=== PATIENT | female | born 1940 | race Caucasian/White ===

== ENCOUNTER 2017-11-08 13:14 | Inpatient (IN) | payer MEDICARE, MEDICAID ==
[2017-11-08] MEDS ORDERED: Sodium Chloride 0.9% 10 ML Syringe FLUSH PRN (13:23)
[2017-11-08] MEDS ORDERED: Lactated Ringers 1,000 ML IV ONE (13:29)
--- NOTE | 2017-11-08 13:34 | EDM.PDOC ---
ED HPI GENERAL MEDICAL PROBLEM - General Chief Complaint: General Stated Complaint: Hypoxia; Lethargy Time Seen by Provider: 11/08/17 13:22 Source of Information: Reports: EMS, EMS Notes Reviewed, Residential Records, RN, RN Notes Reviewed History Limitations: Reports: Altered Mental Status - History of Present Illness INITIAL COMMENTS - FREE TEXT/NARRATIVE: Patient is brought to the ED at [facility] via EMS from the halfway for elevated blood sugar, lethargy, and hypoxia. Patient is a poor historian as she is obtunded and has advanced dementia. History obtained from CT records and EMS crew. Onset: Today - Related Data Allergies Allergy/AdvReac Type Severity Reaction Status Date / Time Penicillins Allergy Rash Verified 11/08/17 14:55 azithromycin [From Zithromax] AdvReac Other Verified 11/08/17 14:55 ciprofloxacin HCl AdvReac Other Verified 11/08/17 14:55 [From Cipro] Home Meds: Home Meds Bisacodyl [Dulcolax] 10 mg RC DAILY PRN 06/03/14 [History] Bisacodyl [Laxative] 10 mg PO DAILY PRN 06/03/14 [History] Polyethylene Glycol 3350 [MiraLAX] 17 gm PO DAILY 06/03/14 [History] Sennosides/Docusate Sodium [Senna-S] 2 tab PO BID 06/03/14 [History] Sertraline [Zoloft] 100 mg PO DAILY 06/03/14 [History] ALPRAZolam [Xanax] 1 mg PO QID 11/08/17 [History] Ketoconazole [Ketoconazole 2%] 1 applic TOP DAILY PRN 11/08/17 [History] Morphine Sulfate 2.5 mg PO Q1H PRN 11/08/17 [History] Ondansetron HCl [Zofran] 4 mg PO Q6H PRN 11/08/17 [History] QUEtiapine Fumarate [Quetiapine Fumarate ER] 400 mg PO DAILY 11/08/17 [History] QUEtiapine [SEROquel] 100 mg PO BID 11/08/17 [History] Ranitidine HCl [Zantac] 150 mg PO BID 11/08/17 [History] Past Medical History Cardiovascular History: Reports: High Cholesterol, Hypertension Gastrointestinal History: Reports: Chronic Constipation, GERD Musculoskeletal History: Reports: Osteoarthritis Neurological History: Reports: Alzheimers Disease, Other (See Below) Other Neuro History: psychosis Psychiatric History: Reports: Aggressive/Hostile Behaviors, Alzheimers Disease , Anxiety, Dementia, Depression, Psychosis, Other (See Below) Other Psychiatric History: dependent Endocrine/Metabolic History: Reports: Diabetes, Type II Social & Family History - Living Situation & Occupation Living situation: Reports: Extended Care Facility ED ROS GENERAL - Review of Systems Review Of Systems: Unable To Obtain (due to patient conditions; See HPI) ED EXAM, GENERAL - Physical Exam Exam: See Below Exam Limited By: Altered Mental Status General Appearance: Obtunded Eye Exam: Bilateral Eye: Normal Inspection, PERRL Head: Atraumatic, Normocephalic Respiratory/Chest: No Respiratory Distress, Lungs Clear, Decreased Breath Sounds Cardiovascular: Normal Peripheral Pulses, Regular Rate, Rhythm Peripheral Pulses: 2+: Radial (L), Radial (R) GI/Abdominal: Normal Bowel Sounds, Soft, Non-Tender Neurological: Disoriented, Unresponsive Skin Exam: Warm, Dry, Intact EKG INTERPRETATION EKG Date: 11/08/17 Time: 13:51 Rhythm: NSR Rate (Beats/Min): 73 [place]: Normal P-Wave: Present QRS: Normal ST-T: Normal QT: Normal UT/PQ Interval: 0.12 Comparison: No Change EKG Interpretation Comments: 1. Sinus Rhythm 2. Moderate voltage criteria for LVH, consider normal variant 3. Nonspecific T-wave abnormality Course - Vital Signs Last Recorded V/S: Last Vital Signs Temp 37.4 C 11/08/17 13:20 Pulse 69 11/08/17 14:57 Resp 17 11/08/17 14:57 BP 134/67 11/08/17 14:57 Pulse Ox 96 11/08/17 14:57 - Orders/Labs/Meds Orders: Active Orders 24 hr Category Date Time Status Admission Status [Patient Status] [ADT] Routine ADT 11/08/17 15:36 Ordered EKG 12 Lead [EKG Documentation Completion] [RC] STAT Care 11/08/17 13:46 Active Chest 1V Frontal [CR] Stat Exams 11/08/17 13:28 Taken Head wo Cont [CT] Stat Exams 11/08/17 15:36 Ordered CULTURE BLOOD [BC] Stat Lab 11/08/17 13:44 Received CULTURE BLOOD [BC] Stat Lab 11/08/17 13:50 Received UA W/MICROSCOPIC [URIN] Stat Lab 11/08/17 13:29 Ordered Sodium Chloride 0.9% [Saline Flush] Med 11/08/17 13:23 Active 10 ml FLUSH ASDIRECTED PRN Vancomycin 1,500 mg Med 11/08/17 15:00 Active Sodium Chloride 0.9% [Normal Saline] 250 ml IV BID@0000,1200 Blood Culture x2 Reflex Set [OM.PC] Stat Oth 11/08/17 13:22 Ordered Peripheral IV Insertion Adult [OM.PC] Routine Oth 11/08/17 13:23 Ordered Medication Orders Vancomycin HCl 1,500 mg/ (Sodium Chloride) 250 mls @ 166.667 mls/hr IV BID@0000 ,1200 DAVID Last Admin: 11/08/17 15:18 Dose: 166.667 mls/hr Sodium Chloride (Saline Flush) 10 ml FLUSH ASDIRECTED PRN PRN Reason: Keep Vein Open Labs: Laboratory Tests 11/08/17 11/08/17 11/08/17 Range/Units 13:29 13:44 13:44 WBC 12.2 H (4.0-10.0) x10^3/uL RBC 4.22 (4.00-5.50) x10^6/uL Hgb 12.7 D (12.0-16.0) g/dL Hct 41.3 (33.0-47.0) % MCV 97.9 H D (78.0-93.0) fL MCH 30.1 (26.0-32.0) pg MCHC 30.8 L (32.0-36.0) g/dL RDW Coeff of Patricia 14.2 (10.0-15.0) % Plt Count 183 (130-400) x10^3/uL Add Manual Diff Yes Neutrophils % (Manual) 65 (50-80) % Band Neutrophils % 2 (0-6) % Lymphocytes % (Manual) 29 (25-50) % Monocytes % (Manual) 4 (2-11) % Platelet Estimate Adequate POC ABG pH POC ABG pCO2 POC ABG pO2 POC ABG HCO3 POC ABG Total CO2 POC ABG O2 Sat POC ABG Base Excess POC VBG pH POC VBG pCO2 POC VBG pO2 POC VBG HCO3 POC VBG Total CO2 POC VBG Base Excess O2 Delivery Device POC O2 Flow Rate POC FiO2 Sodium 156 H D (136-145) mmol/L Potassium 4.1 (3.5-5.1) mmol/L Chloride 117 H D (98-107) mmol/L Carbon Dioxide 31 (21-32) mmol/L Anion Gap 12.1 (10-20) mmol/L BUN 26 H (7-18) mg/dL Creatinine 0.9 (0.55-1.02) mg/dL Est Cr Clr Drug Dosing TNP Estimated GFR (MDRD) > 60 Glucose 236 H (74-106) mg/dL Lactic Acid (0.4-2.0) mmol/L Calcium 8.8 (8.5-10.1) mg/dL Corrected Calcium 9.92 (8.5-10.1) mg/dL Total Bilirubin 0.4 (0.2-1.0) mg/dL AST 19 (15-37) U/L ALT 19 (14-59) U/L Alkaline Phosphatase 87 (46-116) U/L Creatine Kinase (26-192) U/L Troponin I (<=0.056) ng/mL C-Reactive Protein 3.4 H (<=0.9) mg/dL Total Protein 7.5 (6.4-8.2) g/dL Albumin 2.6 L (3.4-5.0) g/dL Globulin 4.9 Albumin/Globulin Ratio 0.53 Urine Color Yellow (YELLOW) Urine Appearance Turbid H (CLEAR) Urine pH 6.5 (5.0-8.0) Ur Specific [place] 1.020 Urine Protein 30 H (NEGATIVE) mg/dL Urine Glucose (UA) 500 H (NEGATIVE) mg/dL Urine Ketones Trace H (NEGATIVE) mg/dL Urine Occult Blood Trace-lysed H (NEGATIVE) Urine Nitrite Positive H (NEGATIVE) Urine Bilirubin Negative (NEGATIVE) Urine Urobilinogen 0.2 (0.2) EU/dL Ur Leukocyte Esterase Negative (NEGATIVE) Urine RBC 5-10 H (NOT SEEN) /HPF Urine WBC 5-10 H (NOT SEEN) /HPF Ur Squamous Epith Cells Few H (NEGATIVE) /HPF Urine Bacteria Many H (NEGATIVE) /HPF Urine Mucus Rare H (NEGATIVE) /LPF 11/08/17 11/08/17 11/08/17 Range/Units 13:44 13:44 14:12 WBC (4.0-10.0) x10^3/uL RBC (4.00-5.50) x10^6/uL Hgb (12.0-16.0) g/dL Hct (33.0-47.0) % MCV (78.0-93.0) fL MCH (26.0-32.0) pg MCHC (32.0-36.0) g/dL RDW Coeff of Patricia (10.0-15.0) % Plt Count (130-400) x10^3/uL Add Manual Diff Neutrophils % (Manual) (50-80) % Band Neutrophils % (0-6) % Lymphocytes % (Manual) (25-50) % Monocytes % (Manual) (2-11) % Platelet Estimate POC ABG pH Cancelled POC ABG pCO2 Cancelled POC ABG pO2 Cancelled POC ABG HCO3 Cancelled POC ABG Total CO2 Cancelled POC ABG O2 Sat Cancelled POC ABG Base Excess Cancelled POC VBG pH Cancelled POC VBG pCO2 Cancelled POC VBG pO2 Cancelled POC VBG HCO3 Cancelled POC VBG Total CO2 Cancelled POC VBG Base Excess Cancelled O2 Delivery Device Cancelled POC O2 Flow Rate Cancelled POC FiO2 Cancelled Sodium (136-145) mmol/L Potassium (3.5-5.1) mmol/L Chloride (98-107) mmol/L Carbon Dioxide (21-32) mmol/L Anion Gap (10-20) mmol/L BUN (7-18) mg/dL Creatinine (0.55-1.02) mg/dL Est Cr Clr Drug Dosing Estimated GFR (MDRD) Glucose (74-106) mg/dL Lactic Acid 2.6 H* (0.4-2.0) mmol/L Calcium (8.5-10.1) mg/dL Corrected Calcium (8.5-10.1) mg/dL Total Bilirubin (0.2-1.0) mg/dL AST (15-37) U/L ALT (14-59) U/L Alkaline Phosphatase (46-116) U/L Creatine Kinase 72 (26-192) U/L Troponin I 0.019 (<=0.056) ng/mL C-Reactive Protein (<=0.9) mg/dL Total Protein (6.4-8.2) g/dL Albumin (3.4-5.0) g/dL Globulin Albumin/Globulin Ratio Urine Color (YELLOW) Urine Appearance (CLEAR) Urine pH (5.0-8.0) Ur Specific [place] Urine Protein (NEGATIVE) mg/dL Urine Glucose (UA) (NEGATIVE) mg/dL Urine Ketones (NEGATIVE) mg/dL Urine Occult Blood (NEGATIVE) Urine Nitrite (NEGATIVE) Urine Bilirubin (NEGATIVE) Urine Urobilinogen (0.2) EU/dL Ur Leukocyte Esterase (NEGATIVE) Urine RBC (NOT SEEN) /HPF Urine WBC (NOT SEEN) /HPF Ur Squamous Epith Cells (NEGATIVE) /HPF Urine Bacteria (NEGATIVE) /HPF Urine Mucus (NEGATIVE) /LPF 11/08/17 Range/Units 14:32 WBC (4.0-10.0) x10^3/uL RBC (4.00-5.50) x10^6/uL Hgb (12.0-16.0) g/dL Hct (33.0-47.0) % MCV (78.0-93.0) fL MCH (26.0-32.0) pg MCHC (32.0-36.0) g/dL RDW Coeff of Patricia (10.0-15.0) % Plt Count (130-400) x10^3/uL Add Manual Diff Neutrophils % (Manual) (50-80) % Band Neutrophils % (0-6) % Lymphocytes % (Manual) (25-50) % Monocytes % (Manual) (2-11) % Platelet Estimate POC ABG pH 7.442 POC ABG pCO2 44 POC ABG pO2 79 L POC ABG HCO3 30 H POC ABG Total CO2 31 H POC ABG O2 Sat 96 POC ABG Base Excess 6 H POC VBG pH POC VBG pCO2 POC VBG pO2 POC VBG HCO3 POC VBG Total CO2 POC VBG Base Excess O2 Delivery Device POC O2 Flow Rate POC FiO2 0.28 Sodium (136-145) mmol/L Potassium (3.5-5.1) mmol/L Chloride (98-107) mmol/L Carbon Dioxide (21-32) mmol/L Anion Gap (10-20) mmol/L BUN (7-18) mg/dL Creatinine (0.55-1.02) mg/dL Est Cr Clr Drug Dosing Estimated GFR (MDRD) Glucose (74-106) mg/dL Lactic Acid (0.4-2.0) mmol/L Calcium (8.5-10.1) mg/dL Corrected Calcium (8.5-10.1) mg/dL Total Bilirubin (0.2-1.0) mg/dL AST (15-37) U/L ALT (14-59) U/L Alkaline Phosphatase (46-116) U/L Creatine Kinase (26-192) U/L Troponin I (<=0.056) ng/mL C-Reactive Protein (<=0.9) mg/dL Total Protein (6.4-8.2) g/dL Albumin (3.4-5.0) g/dL Globulin Albumin/Globulin Ratio Urine Color (YELLOW) Urine Appearance (CLEAR) Urine pH (5.0-8.0) Ur Specific [place] Urine Protein (NEGATIVE) mg/dL Urine Glucose (UA) (NEGATIVE) mg/dL Urine Ketones (NEGATIVE) mg/dL Urine Occult Blood (NEGATIVE) Urine Nitrite (NEGATIVE) Urine Bilirubin (NEGATIVE) Urine Urobilinogen (0.2) EU/dL Ur Leukocyte Esterase (NEGATIVE) Urine RBC (NOT SEEN) /HPF Urine WBC (NOT SEEN) /HPF Ur Squamous Epith Cells (NEGATIVE) /HPF Urine Bacteria (NEGATIVE) /HPF Urine Mucus (NEGATIVE) /LPF Meds: Medications Generic Name Dose Route Start Last Admin Trade Name Freq PRN Reason Stop Dose Admin Vancomycin HCl 1,500 mg/ 250 mls @ 166.667 mls/hr 11/08/17 15:00 11/08/17 15: 18 Sodium Chloride IV 166.667 mls/hr BID@0000,1200 DAVID Administration Sodium Chloride 10 ml 11/08/17 13:23 Saline Flush FLUSH ASDIRECTED PRN Keep Vein Open Discontinued Medications Generic Name Dose Route Start Last Admin Trade Name Freq PRN Reason Stop Dose Admin Lactated Ringer's 1,000 mls @ 999 mls/hr 11/08/17 13:29 Ringers, Lactated IV 11/08/17 14:29 ONETIME ONE Sodium Chloride 1,000 mls @ 999 mls/hr 11/08/17 13:45 11/08/17 14:00 Normal Saline IV 11/08/17 14:45 999 mls/hr ONETIME ONE Administration Vancomycin HCl 1 dose 11/08/17 14:51 11/08/17 15:26 Pharmacy To Dose - Vancomycin .XX 11/08/17 14:52 Not Given ONETIME ONE - Radiology Interpretation Free Text/Narrative:: CXR: Hypoventilatory change with bibasilar atelectasis and possible left base infiltrates See scanned report in EMR Departure - Departure Time of Disposition: 15:41 Disposition: Admitted As Inpatient 68 Condition: Fair Clinical Impression: Pneumonia Qualifiers: Pneumonia type: due to unspecified organism Laterality: left Lung location: lower lobe of lung Qualified Code(s): J18.1 - Lobar pneumonia, unspecified organism Sepsis Qualifiers: Sepsis type: sepsis due to unspecified organism Qualified Code(s): A41.9 - Sepsis, unspecified organism Altered mental status Qualifiers: Altered mental status type: unspecified Qualified Code(s): R41.82 - Altered mental status, unspecified - Discharge Information ED Communication - ED Communication Date/Time Date: 11/08/17 Time Called: 15:03 - Discussed Case With (1) Discussed Case With (1): Admitting Provider Person/s Notified (1): Caleb Rdz - Conversation Summary Admitting Provider Agreed to Patient's Admission: Yes Patient's POA/Guardian Aware of Amendments to Care Plan: Yes - Problem List Review Problem List Initiated/Reviewed/Updated: Yes - My Orders Last 24 Hours: My Active Orders 11/08/17 13:22 Blood Culture x2 Reflex Set [OM.PC] Stat 11/08/17 13:23 Sodium Chloride 0.9% [Saline Flush] 10 ml FLUSH ASDIRECTED PRN Peripheral IV Insertion Adult [OM.PC] Routine 11/08/17 13:28 Chest 1V Frontal [CR] Stat 11/08/17 13:29 UA W/MICROSCOPIC [URIN] Stat 11/08/17 13:44 CULTURE BLOOD [BC] Stat 11/08/17 13:46 EKG 12 Lead [EKG Documentation Completion] [RC] STAT 11/08/17 13:50 CULTURE BLOOD [BC] Stat 11/08/17 15:00 Vancomycin 1,500 mg Sodium Chloride 0.9% [Normal Saline] 250 ml IV BID@0000, 1200 11/08/17 15:36 Admission Status [Patient Status] [ADT] Routine Head wo Cont [CT] Stat - Assessment/Plan Last 24 Hours: My Active Orders 11/08/17 13:22 Blood Culture x2 Reflex Set [OM.PC] Stat 11/08/17 13:23 Sodium Chloride 0.9% [Saline Flush] 10 ml FLUSH ASDIRECTED PRN Peripheral IV Insertion Adult [OM.PC] Routine 11/08/17 13:28 Chest 1V Frontal [CR] Stat 11/08/17 13:29 UA W/MICROSCOPIC [URIN] Stat 11/08/17 13:44 CULTURE BLOOD [BC] Stat 11/08/17 13:46 EKG 12 Lead [EKG Documentation Completion] [RC] STAT 11/08/17 13:50 CULTURE BLOOD [BC] Stat 11/08/17 15:00 Vancomycin 1,500 mg Sodium Chloride 0.9% [Normal Saline] 250 ml IV BID@0000, 1200 11/08/17 15:36 Admission Status [Patient Status] [ADT] Routine Head wo Cont [CT] Stat Assessment:: LLL infiltrate Hypoxia Altered Mental Status Plan: Sepsis criteria met. Patient will be given Vanco as initial antibiotic. Patient will be admitted to acute status. Case discussed with Dr. Kevin Avendaño.
[2017-11-08] MEDS ORDERED: Sodium Chloride 0.9% 1,000 ML IV ONE (13:45)
[2017-11-08 14:21] LABS: CHLORIDE,CL 117 mmol/L (98-107); SODIUM,NA 156 mmol/L (136-145)
[2017-11-08] MEDS ORDERED: Acetaminophen 325 MG Tab PO PRN (16:55)
[2017-11-08] MEDS ORDERED: Bisacodyl 10 MG Supp RECTAL PRN (16:55)
[2017-11-08] MEDS ORDERED: Glycopyrrolate 1 MG Tab PO PRN (16:55)
[2017-11-08] MEDS ORDERED: Levofloxacin/Dextrose 5%-Water 500 MG in Premix Bag 1 BAG IV SCH (17:00)
[2017-11-08] MEDS ORDERED: Ondansetron 4 MG/2 ML SDV IV PRN (17:13)
--- NOTE | 2017-11-08 17:13 | PCM.HP ---
H&P History of Present Illness - General Date of Service: 11/08/17 Admit Problem/Dx: Admission Diagnosis/Problem Admission Diagnosis/Problem Pneumonia - History of Present Illness Initial Comments - Free Text/Narative: History of present illness: Patient was [facility] a [facility] for couple day history of lethargy, less responsive, low-grade temps, hypoxia, was around 87% on room air there. Symptoms going on past couple of days. Patient has a history of advanced dementia she had been on hospice because of this up until a week ago. From report I get sounds if she was maybe slightly improving with her oral intake and cares she was taken off hospice a week ago. Patient cannot provide any history or review of systems. On arrival to ER she was found to be rather obtunded she was arousable to painful stimulation. CT head was done to rule out any acute events and was negative. They gave her some fluid challenge and she seems a bit more responsive now, nursing reports she's waking up easily. PMH: advancing dementia w/ previous hospice Type 2 diabetes mellitus, hypertension, prolonged QT on ECG, depression, anxiety , delirium. Medications: Levemir, Xanax, B-12, metformin, Seroquel, cold, Zyprexa, aspirin, Zocor. Allergies: Penicillin, Ativan, Cipro, azithromycin. Family history is noncontributory. Social history shows smoking history although not likely recently at the jail. Review of Systems is otherwise unobtainable. Physical exam: Temperature 36.3 Celsius blood pressure 134/67 pulse 69 oxygen saturation 96% on 2 L. He is resting comfortably, she opens her eyes and arouses easily to my talking to her. She is slightly pale appearance. She's otherwise smiling and happy. Pupils are equal round reactive to light. No cranial nerve deficit as testable. Heart and lungs clear to auscultation. Abdomen is soft and nontender seeming. Extremities warm well perfused without peripheral edema. A/P: Decreased responsiveness. Nonspecific in patient with advanced dementia. She does appear to have a total body water deficit, she is hypernatremic and her BUN is elevated beyond baseline. We will switch normal saline to LR and gently rehydrate her. Recheck electrolytes in a.m. She seemed to wake up quickly with fluid challenge in ER. Her hypoxia could be secondary to decreased responsiveness. Blood gas fairly normal. Not requiring much for oxygen supplementation here. X-ray has not overly impressive, may be faint left-sided infiltrate at most. Will start empiric vancomycin and cefepime for possible healthcare associated pneumonia. She will continue her usual sedatives for her dementia related behaviors. She is a DNR patient. She had been on hospice up until a week ago because of her advanced dementia. - Related Data Allergies/Adverse Reactions: Allergies Allergy/AdvReac Type Severity Reaction Status Date / Time Penicillins Allergy Rash Verified 11/08/17 14:55 azithromycin [From Zithromax] AdvReac Other Verified 11/08/17 14:55 ciprofloxacin HCl AdvReac Other Verified 11/08/17 14:55 [From Cipro] Home Medications: Home Meds Bisacodyl [Dulcolax] 10 mg RC DAILY PRN 06/03/14 [History] Bisacodyl [Laxative] 5 mg PO DAILY PRN 06/03/14 [History] Polyethylene Glycol 3350 [MiraLAX] 17 gm PO DAILY 06/03/14 [History] Sennosides/Docusate Sodium [Senna-S] 2 tab PO BID 06/03/14 [History] Sertraline [Zoloft] 100 mg PO DAILY 06/03/14 [History] ALPRAZolam [Xanax] 1 mg PO QID 11/08/17 [History] Acetaminophen 650 mg PO Q6H PRN 11/08/17 [History] Ammonium Lactate [Amlactin 12% Lotion] 1 dose TP DAILY 11/08/17 [History] [place]/Min Oil/Yady/Wool Alcoh [Eucerin Creme] 1 dose TOP BID 11/08/17 [History] Divalproex Sodium [Depakote] 3 tab PO BID 11/08/17 [History] Glycopyrrolate [Robinul] 1 mg PO Q8H PRN 11/08/17 [History] Insulin Detemir [Levemir] 22 unit SQ DAILY 11/08/17 [History] Ketoconazole [Ketoconazole 2%] 1 applic TOP DAILY PRN 11/08/17 [History] Menthol/Zinc Oxide [Calmoseptine] 3.5 gm TOP BID 11/08/17 [History] Morphine Sulfate 2.5 mg PO Q1H PRN 11/08/17 [History] Ondansetron HCl [Zofran] 4 mg PO Q6H PRN 11/08/17 [History] QUEtiapine Fumarate [Quetiapine Fumarate ER] 400 mg PO DAILY 11/08/17 [History] QUEtiapine [SEROquel] 100 mg PO BID 11/08/17 [History] Ranitidine HCl [Zantac] 150 mg PO BID 11/08/17 [History] Past Medical History HEENT History: Reports: Sinusitis Cardiovascular History: Reports: High Cholesterol, Hypertension, Other (See Below) Other Cardiovascular History: Prolonged Q-T interval. Gastrointestinal History: Reports: Chronic Constipation, GERD Other Gastrointestinal History: diaphragmatic hernia Genitourinary History: Reports: UTI, Recurrent Musculoskeletal History: Reports: Osteoarthritis Neurological History: Reports: Alzheimers Disease, Vertigo, Other (See Below) Other Neuro History: psychosis Psychiatric History: Reports: Aggressive/Hostile Behaviors, Alzheimers Disease , Anxiety, Depression, Psychosis, Other (See Below) Other Psychiatric History: dependent Endocrine/Metabolic History: Reports: Diabetes, Type II Hematologic History: Reports: B12 Deficiency Social & Family History - Family History Family Medical History: Unobtainable - Tobacco Use Smoking Status *Q: Current Status Unknown Second Hand Smoke Exposure: No - Caffeine Use Caffeine Use: Reports: Coffee - Recreational Drug Use Recreational Drug Use: No - Living Situation & Occupation Living situation: Reports: Extended Care Facility H&P Review of Systems - Review of Systems: Review Of Systems: See Below Exam - Exam Exam: See Below - Vital Signs Vital Signs: Last Vital Signs Temp 36.3 C 11/08/17 15:47 Pulse 68 11/08/17 15:47 Resp 20 11/08/17 15:47 BP 162/98 H 11/08/17 15:47 Pulse Ox 95 11/08/17 15:47 Weight: 83.506 kg - Patient Data Lab Results Last 24 hrs: Laboratory Results - last 24 hr 11/08/17 11/08/17 11/08/17 Range/Units 13:29 13:44 13:44 WBC 12.2 H (4.0-10.0) x10^3/uL RBC 4.22 (4.00-5.50) x10^6/uL Hgb 12.7 D (12.0-16.0) g/dL Hct 41.3 (33.0-47.0) % MCV 97.9 H D (78.0-93.0) fL MCH 30.1 (26.0-32.0) pg MCHC 30.8 L (32.0-36.0) g/dL RDW Coeff of Patricia 14.2 (10.0-15.0) % Plt Count 183 (130-400) x10^3/uL Add Manual Diff Yes Neutrophils % (Manual) 65 (50-80) % Band Neutrophils % 2 (0-6) % Lymphocytes % (Manual) 29 (25-50) % Monocytes % (Manual) 4 (2-11) % Platelet Estimate Adequate POC ABG pH POC ABG pCO2 POC ABG pO2 POC ABG HCO3 POC ABG Total CO2 POC ABG O2 Sat POC ABG Base Excess POC VBG pH POC VBG pCO2 POC VBG pO2 POC VBG HCO3 POC VBG Total CO2 POC VBG Base Excess O2 Delivery Device POC O2 Flow Rate POC FiO2 Sodium 156 H D (136-145) mmol/L Potassium 4.1 (3.5-5.1) mmol/L Chloride 117 H D (98-107) mmol/L Carbon Dioxide 31 (21-32) mmol/L Anion Gap 12.1 (10-20) mmol/L BUN 26 H (7-18) mg/dL Creatinine 0.9 (0.55-1.02) mg/dL Est Cr Clr Drug Dosing TNP Estimated GFR (MDRD) > 60 Glucose 236 H (74-106) mg/dL Lactic Acid (0.4-2.0) mmol/L Calcium 8.8 (8.5-10.1) mg/dL Corrected Calcium 9.92 (8.5-10.1) mg/dL Total Bilirubin 0.4 (0.2-1.0) mg/dL AST 19 (15-37) U/L ALT 19 (14-59) U/L Alkaline Phosphatase 87 (46-116) U/L Creatine Kinase (26-192) U/L Troponin I (<=0.056) ng/mL C-Reactive Protein 3.4 H (<=0.9) mg/dL Total Protein 7.5 (6.4-8.2) g/dL Albumin 2.6 L (3.4-5.0) g/dL Globulin 4.9 Albumin/Globulin Ratio 0.53 Urine Color Yellow (YELLOW) Urine Appearance Turbid H (CLEAR) Urine pH 6.5 (5.0-8.0) Ur Specific [place] 1.020 Urine Protein 30 H (NEGATIVE) mg/dL Urine Glucose (UA) 500 H (NEGATIVE) mg/dL Urine Ketones Trace H (NEGATIVE) mg/dL Urine Occult Blood Trace-lysed H (NEGATIVE) Urine Nitrite Positive H (NEGATIVE) Urine Bilirubin Negative (NEGATIVE) Urine Urobilinogen 0.2 (0.2) EU/dL Ur Leukocyte Esterase Negative (NEGATIVE) Urine RBC 5-10 H (NOT SEEN) /HPF Urine WBC 5-10 H (NOT SEEN) /HPF Ur Squamous Epith Cells Few H (NEGATIVE) /HPF Urine Bacteria Many H (NEGATIVE) /HPF Urine Mucus Rare H (NEGATIVE) /LPF 11/08/17 11/08/17 11/08/17 Range/Units 13:44 13:44 14:12 WBC (4.0-10.0) x10^3/uL RBC (4.00-5.50) x10^6/uL Hgb (12.0-16.0) g/dL Hct (33.0-47.0) % MCV (78.0-93.0) fL MCH (26.0-32.0) pg MCHC (32.0-36.0) g/dL RDW Coeff of Patricia (10.0-15.0) % Plt Count (130-400) x10^3/uL Add Manual Diff Neutrophils % (Manual) (50-80) % Band Neutrophils % (0-6) % Lymphocytes % (Manual) (25-50) % Monocytes % (Manual) (2-11) % Platelet Estimate POC ABG pH Cancelled POC ABG pCO2 Cancelled POC ABG pO2 Cancelled POC ABG HCO3 Cancelled POC ABG Total CO2 Cancelled POC ABG O2 Sat Cancelled POC ABG Base Excess Cancelled POC VBG pH Cancelled POC VBG pCO2 Cancelled POC VBG pO2 Cancelled POC VBG HCO3 Cancelled POC VBG Total CO2 Cancelled POC VBG Base Excess Cancelled O2 Delivery Device Cancelled POC O2 Flow Rate Cancelled POC FiO2 Cancelled Sodium (136-145) mmol/L Potassium (3.5-5.1) mmol/L Chloride (98-107) mmol/L Carbon Dioxide (21-32) mmol/L Anion Gap (10-20) mmol/L BUN (7-18) mg/dL Creatinine (0.55-1.02) mg/dL Est Cr Clr Drug Dosing Estimated GFR (MDRD) Glucose (74-106) mg/dL Lactic Acid 2.6 H* (0.4-2.0) mmol/L Calcium (8.5-10.1) mg/dL Corrected Calcium (8.5-10.1) mg/dL Total Bilirubin (0.2-1.0) mg/dL AST (15-37) U/L ALT (14-59) U/L Alkaline Phosphatase (46-116) U/L Creatine Kinase 72 (26-192) U/L Troponin I 0.019 (<=0.056) ng/mL C-Reactive Protein (<=0.9) mg/dL Total Protein (6.4-8.2) g/dL Albumin (3.4-5.0) g/dL Globulin Albumin/Globulin Ratio Urine Color (YELLOW) Urine Appearance (CLEAR) Urine pH (5.0-8.0) Ur Specific [place] Urine Protein (NEGATIVE) mg/dL Urine Glucose (UA) (NEGATIVE) mg/dL Urine Ketones (NEGATIVE) mg/dL Urine Occult Blood (NEGATIVE) Urine Nitrite (NEGATIVE) Urine Bilirubin (NEGATIVE) Urine Urobilinogen (0.2) EU/dL Ur Leukocyte Esterase (NEGATIVE) Urine RBC (NOT SEEN) /HPF Urine WBC (NOT SEEN) /HPF Ur Squamous Epith Cells (NEGATIVE) /HPF Urine Bacteria (NEGATIVE) /HPF Urine Mucus (NEGATIVE) /LPF 11/08/17 Range/Units 14:32 WBC (4.0-10.0) x10^3/uL RBC (4.00-5.50) x10^6/uL Hgb (12.0-16.0) g/dL Hct (33.0-47.0) % MCV (78.0-93.0) fL MCH (26.0-32.0) pg MCHC (32.0-36.0) g/dL RDW Coeff of Patricia (10.0-15.0) % Plt Count (130-400) x10^3/uL Add Manual Diff Neutrophils % (Manual) (50-80) % Band Neutrophils % (0-6) % Lymphocytes % (Manual) (25-50) % Monocytes % (Manual) (2-11) % Platelet Estimate POC ABG pH 7.442 POC ABG pCO2 44 POC ABG pO2 79 L POC ABG HCO3 30 H POC ABG Total CO2 31 H POC ABG O2 Sat 96 POC ABG Base Excess 6 H POC VBG pH POC VBG pCO2 POC VBG pO2 POC VBG HCO3 POC VBG Total CO2 POC VBG Base Excess O2 Delivery Device POC O2 Flow Rate POC FiO2 0.28 Sodium (136-145) mmol/L Potassium (3.5-5.1) mmol/L Chloride (98-107) mmol/L Carbon Dioxide (21-32) mmol/L Anion Gap (10-20) mmol/L BUN (7-18) mg/dL Creatinine (0.55-1.02) mg/dL Est Cr Clr Drug Dosing Estimated GFR (MDRD) Glucose (74-106) mg/dL Lactic Acid (0.4-2.0) mmol/L Calcium (8.5-10.1) mg/dL Corrected Calcium (8.5-10.1) mg/dL Total Bilirubin (0.2-1.0) mg/dL AST (15-37) U/L ALT (14-59) U/L Alkaline Phosphatase (46-116) U/L Creatine Kinase (26-192) U/L Troponin I (<=0.056) ng/mL C-Reactive Protein (<=0.9) mg/dL Total Protein (6.4-8.2) g/dL Albumin (3.4-5.0) g/dL Globulin Albumin/Globulin Ratio Urine Color (YELLOW) Urine Appearance (CLEAR) Urine pH (5.0-8.0) Ur Specific [place] Urine Protein (NEGATIVE) mg/dL Urine Glucose (UA) (NEGATIVE) mg/dL Urine Ketones (NEGATIVE) mg/dL Urine Occult Blood (NEGATIVE) Urine Nitrite (NEGATIVE) Urine Bilirubin (NEGATIVE) Urine Urobilinogen (0.2) EU/dL Ur Leukocyte Esterase (NEGATIVE) Urine RBC (NOT SEEN) /HPF Urine WBC (NOT SEEN) /HPF Ur Squamous Epith Cells (NEGATIVE) /HPF Urine Bacteria (NEGATIVE) /HPF Urine Mucus (NEGATIVE) /LPF Result Diagrams: 11/08/17 13:44 11/08/17 13:44 Problem List Initiated/Reviewed/Updated: Yes Orders Last 24hrs: Active Orders 24 hr Category Date Time Status Admission Status [Patient Status] [ADT] Routine ADT 11/08/17 15:36 Active Blood Glucose Check, Bedside [RC] QIDACANDBED Care 11/08/17 16:56 Active Chest 1V Frontal [CR] Stat Exams 11/08/17 13:28 Taken Head wo Cont [CT] Stat Exams 11/08/17 15:36 Taken C-REACTIVE PROTEIN [CHEM] AM Lab 11/09/17 05:11 Ordered CBC WITH AUTO DIFF [HEME] AM Lab 11/09/17 05:11 Ordered COMPREHENSIVE METABOLIC PN,CMP [CHEM] AM Lab 11/09/17 05:11 Ordered CULTURE BLOOD [BC] Stat Lab 11/08/17 13:44 Received CULTURE BLOOD [BC] Stat Lab 11/08/17 13:50 Received CULTURE MRSA SURVEY [RM] Routine Lab 11/08/17 16:18 Ordered LACTIC ACID [CHEM] AM Lab 11/09/17 05:11 Ordered UA W/MICROSCOPIC [URIN] Stat Lab 11/08/17 13:29 Ordered VANCOMYCIN TROUGH [CHEM] Routine Lab 11/10/17 11:30 Ordered ALPRAZolam [Xanax] Med 11/08/17 20:00 Ordered 1 mg PO QID Acetaminophen [Tylenol] Med 11/08/17 16:55 Ordered 650 mg PO Q6H PRN Bisacodyl [Dulcolax] Med 11/08/17 16:55 Ordered 10 mg RECTAL DAILY PRN Bisacodyl [Laxative] Med 11/08/17 16:55 Ordered 5 mg PO DAILY PRN Cefepime [Maxipime] Med 11/08/17 17:15 Ordered 2 gm IV Q8H Divalproex Sodium [Depakote] Med 11/08/17 20:00 Ordered 3 tab PO BID Docusate Sodium/Sennosides [Senna Plus] Med 11/08/17 20:00 Ordered 2 tab PO BID Glycopyrrolate [Robinul] Med 11/08/17 16:55 Ordered 1 mg PO Q8H PRN Insulin Detemir Med 11/09/17 08:00 Ordered 22 unit SQ DAILY Levofloxacin/Dextrose 5%-Water [Levaquin in D5W 500 MG/ Med 11/08/17 17:00 Ordered 100 ML] 500 mg Premix Bag 1 bag IV Q24H Morphine Sulfate [Morphine Sulfate] Med 11/08/17 16:55 Ordered 2.5 mg PO Q1H PRN Ondansetron HCl Med 11/08/17 16:55 Ordered 4 mg PO Q6H PRN Polyethylene Glycol 3350 [MiraLAX] Med 11/09/17 08:00 Ordered 17 gm PO DAILY QUEtiapine Fumarate [Quetiapine Fumarate ER] Med 11/09/17 08:00 Ordered 400 mg PO DAILY QUEtiapine [SEROquel] Med 11/08/17 20:00 Ordered 100 mg PO BID Ranitidine HCl [Zantac] Med 11/08/17 20:00 Ordered 150 mg PO BID Sertraline [Zoloft] Med 11/09/17 08:00 Ordered 100 mg PO DAILY Sodium Chloride 0.9% [Saline Flush] Med 11/08/17 13:23 Active 10 ml FLUSH ASDIRECTED PRN Vancomycin 1,500 mg Med 11/08/17 15:00 Active Sodium Chloride 0.9% [Normal Saline] 250 ml IV BID@0000,1200 Vancomycin Pharmacy to Dose [Pharmacy to Dose - Med 11/08/17 16:45 Pending Vancomycin] 1 dose .XX ONETIME ONE Blood Culture x2 Reflex Set [OM.PC] Stat Oth 11/08/17 13:22 Ordered Peripheral IV Insertion Adult [OM.PC] Routine Oth 11/08/17 13:23 Ordered Code Status [Resuscitation Status] Routine Resus Stat 11/08/17 16:15 Ordered Medication Orders Acetaminophen (Tylenol) 650 mg PO Q6H PRN PRN Reason: Pain Bisacodyl (Dulcolax) 10 mg RECTAL DAILY PRN PRN Reason: Constipation Cefepime HCl (Maxipime) 2 gm IV Q8H DAVID Glycopyrrolate (Robinul) 1 mg PO Q8H PRN PRN Reason: Other Vancomycin HCl 1,500 mg/ (Sodium Chloride) 250 mls @ 166.667 mls/hr IV BID@0000 ,1200 [facility] Last Admin: 11/08/17 15:18 Dose: 166.667 mls/hr Levofloxacin/Dextrose 500 mg/ (Premix) 100 mls @ 100 mls/hr IV Q24H [facility] Non-Formulary Medication (Alprazolam [Xanax]) 1 mg PO QID [facility] Non-Formulary Medication (Bisacodyl [Laxative]) 5 mg PO DAILY PRN PRN Reason: Constipation Non-Formulary Medication (Divalproex Sodium [Depakote]) 3 tab PO BID [facility] Non-Formulary Medication (Insulin Detemir) 22 unit SQ DAILY DAVID Non-Formulary Medication (Morphine Sulfate [Morphine Sulfate]) 2.5 mg PO Q1H PRN PRN Reason: Pain Non-Formulary Medication (Ondansetron Hcl) 4 mg PO Q6H PRN PRN Reason: Nausea Non-Formulary Medication (Quetiapine Fumarate [Quetiapine Fumarate Er]) 400 mg PO DAILY [facility] Non-Formulary Medication (Ranitidine Hcl [Zantac]) 150 mg PO BID [facility] Polyethylene Glycol (Miralax) 17 gm PO DAILY [facility] Quetiapine Fumarate (Seroquel) 100 mg PO BID [facility] Senna/Docusate Sodium (Senna Plus) 2 tab PO BID [facility] Sertraline HCl (Zoloft) 100 mg PO DAILY [facility] Sodium Chloride (Saline Flush) 10 ml FLUSH ASDIRECTED PRN PRN Reason: Keep Vein Open Vancomycin HCl (Pharmacy To Dose - Vancomycin) 1 dose .XX ONETIME ONE Stop: 11/08/17 16:46
[2017-11-08] MEDS ORDERED: Ondansetron 4 MG Tab.DIS PO PRN (17:30)
[2017-11-08] MEDS ORDERED: Bisacodyl 5 MG Tab PO PRN (17:30)
[2017-11-08] MEDS ORDERED: Morphine Oral Concentrate 20 MG/ML 30 ML Bottle PO PRN (17:30)
[2017-11-08] MEDS ORDERED: Levofloxacin/Dextrose 5%-Water 500 MG in Premix Bag 1 BAG IV ONE (17:45)
[2017-11-08] MEDS: Cefepime 1 GM Vial IV SCH (17:56)
[2017-11-08] MEDS ORDERED: Cefepime 1 GM Vial IV SCH (18:00)
[2017-11-08] MEDS: Lactated Ringers 1,000 ML IV SCH (19:28)
[2017-11-08] MEDS ORDERED: Non-Formulary Medication 1 Each (Ranitidine Hcl [Zantac] 150 MG) PO SCH (20:00)
[2017-11-08] MEDS: ALPRAZolam 0.5 MG Tab PO SCH (20:44)
[2017-11-08] MEDS: QUEtiapine 100 MG Tab PO SCH (20:44)
[2017-11-08] MEDS: DIVALPROEX SODIUM 125 MG PO SCH (20:47)
[2017-11-09] MEDS: Lactated Ringers 1,000 ML IV SCH (05:06)
[2017-11-09] MEDS: Cefepime 1 GM Vial IV SCH ×2 (05:46→19:11)
[2017-11-09 07:14] LABS: CHLORIDE,CL 119 mmol/L (98-107); SODIUM,NA 157 mmol/L (136-145)
[2017-11-09] MEDS: Enoxaparin 40 MG/0.4 ML Syringe SUBCUT SCH (07:52)
[2017-11-09] MEDS: Insulin Detemir 100 Units/ML 3 ML Pen SUBCUT SCH (07:52)
[2017-11-09] MEDS: DIVALPROEX SODIUM 125 MG PO SCH ×2 (07:52→19:37)
[2017-11-09] MEDS: ALPRAZolam 0.5 MG Tab PO SCH ×4 (07:53→19:35)
[2017-11-09] MEDS: Polyethylene Glycol 3350 Powder 17 GM Packet PO SCH (07:53)
[2017-11-09] MEDS: Famotidine 20 MG Tab PO SCH (07:53)
[2017-11-09] MEDS: QUEtiapine 100 MG Tab PO SCH ×4 (07:53→19:34)
[2017-11-09] MEDS: Sertraline 100 MG Tab PO SCH (07:53)
[2017-11-09] MEDS ORDERED: D5 1/2 NS w/ 10 mEq/L KCl 1,000 ML IV SCH (09:15)
--- NOTE | 2017-11-09 10:24 | PCM.PN ---
- General Info Date of Service: 11/09/17 Admission Dx/Problem (Free Text): Subjective: Patient was admitted yesterday for possible pneumonia, decreased responsiveness, seemed respond to fluid challenge, afebrile, requiring minimal oxygen supplementation currently, white count is come down on Vanco plus cefepime for possible HCAP low not a lot of infiltrate by chest x-ray. She remains hypernatremic. She was [facility] and on hospice prior for severe dementia likely has decreased intake chronically secondary to such. Objective: Afebrile, vital signs are normal, she is sleeping she arouses and smiles fairly easily. Heart and lungs are clear abdomen soft nontender chimneys warm well perfused without edema. Assessment And plan: Possible pneumonitis. Continue Vanco and cefepime. Probably home tomorrow on oral cephalosporin to complete a minimum of five days of antibiotics. Hypernatremia appears to be secondary to decreased oral intake. Switch fluids from LR to half normal D5 and 100 mL per hour. Recheck chemistry in a.m. If sodium still high we could do some free water infusion prior to discharge. Hyperglycemia, known diabetes, on basal insulin, we'll add some short acting mealtime three units Humalog 3 times a day while she is on D5 here. - Patient Data Vitals - Most Recent: Last Vital Signs Temp 36.1 C 11/09/17 06:00 Pulse 62 11/09/17 06:00 Resp 18 11/09/17 06:00 BP 140/78 11/09/17 06:00 Pulse Ox 96 11/09/17 08:15 Weight - Most Recent: 83.506 kg I&O - Last 24 Hours: Intake & Output 11/08/17 11/09/17 11/09/17 22:59 06:59 14:59 Intake Total 460 1316 860 Output Total 300 700 Balance 160 616 860 Lab Results Last 24 Hours: Laboratory Results - last 24 hr 11/08/17 11/08/17 11/08/17 Range/Units 13:29 13:44 13:44 WBC 12.2 H (4.0-10.0) x10^3/uL RBC 4.22 (4.00-5.50) x10^6/uL Hgb 12.7 D (12.0-16.0) g/dL Hct 41.3 (33.0-47.0) % MCV 97.9 H D (78.0-93.0) fL MCH 30.1 (26.0-32.0) pg MCHC 30.8 L (32.0-36.0) g/dL RDW Coeff of Patricia 14.2 (10.0-15.0) % Plt Count 183 (130-400) x10^3/uL Neut % (Auto) (50.0-80.0) % Lymph % (Auto) (25.0-50.0) % [place] % (Auto) (2.0-11.0) % Eos % (Auto) (0.0-4.0) % Baso % (Auto) (0.2-1.2) % Add Manual Diff Yes Neutrophils % (Manual) 65 (50-80) % Band Neutrophils % 2 (0-6) % Lymphocytes % (Manual) 29 (25-50) % Monocytes % (Manual) 4 (2-11) % Platelet Estimate Adequate POC ABG pH POC ABG pCO2 POC ABG pO2 POC ABG HCO3 POC ABG Total CO2 POC ABG O2 Sat POC ABG Base Excess POC VBG pH POC VBG pCO2 POC VBG pO2 POC VBG HCO3 POC VBG Total CO2 POC VBG Base Excess O2 Delivery Device POC O2 Flow Rate POC FiO2 Sodium 156 H D (136-145) mmol/L Potassium 4.1 (3.5-5.1) mmol/L Chloride 117 H D (98-107) mmol/L Carbon Dioxide 31 (21-32) mmol/L Anion Gap 12.1 (10-20) mmol/L BUN 26 H (7-18) mg/dL Creatinine 0.9 (0.55-1.02) mg/dL Est Cr Clr Drug Dosing TNP Estimated GFR (MDRD) > 60 Glucose 236 H (74-106) mg/dL POC Glucose (74-106) mg/dL Lactic Acid (0.4-2.0) mmol/L Calcium 8.8 (8.5-10.1) mg/dL Corrected Calcium 9.92 (8.5-10.1) mg/dL Total Bilirubin 0.4 (0.2-1.0) mg/dL AST 19 (15-37) U/L ALT 19 (14-59) U/L Alkaline Phosphatase 87 (46-116) U/L Creatine Kinase (26-192) U/L Troponin I (<=0.056) ng/mL C-Reactive Protein 3.4 H (<=0.9) mg/dL Total Protein 7.5 (6.4-8.2) g/dL Albumin 2.6 L (3.4-5.0) g/dL Globulin 4.9 Albumin/Globulin Ratio 0.53 Urine Color Yellow (YELLOW) Urine Appearance Turbid H (CLEAR) Urine pH 6.5 (5.0-8.0) Ur Specific [place] 1.020 Urine Protein 30 H (NEGATIVE) mg/dL Urine Glucose (UA) 500 H (NEGATIVE) mg/dL Urine Ketones Trace H (NEGATIVE) mg/dL Urine Occult Blood Trace-lysed H (NEGATIVE) Urine Nitrite Positive H (NEGATIVE) Urine Bilirubin Negative (NEGATIVE) Urine Urobilinogen 0.2 (0.2) EU/dL Ur Leukocyte Esterase Negative (NEGATIVE) Urine RBC 5-10 H (NOT SEEN) /HPF Urine WBC 5-10 H (NOT SEEN) /HPF Ur Squamous Epith Cells Few H (NEGATIVE) /HPF Urine Bacteria Many H (NEGATIVE) /HPF Urine Mucus Rare H (NEGATIVE) /LPF 11/08/17 11/08/17 11/08/17 Range/Units 13:44 13:44 14:12 WBC (4.0-10.0) x10^3/uL RBC (4.00-5.50) x10^6/uL Hgb (12.0-16.0) g/dL Hct (33.0-47.0) % MCV (78.0-93.0) fL MCH (26.0-32.0) pg MCHC (32.0-36.0) g/dL RDW Coeff of Patricia (10.0-15.0) % Plt Count (130-400) x10^3/uL Neut % (Auto) (50.0-80.0) % Lymph % (Auto) (25.0-50.0) % [place] % (Auto) (2.0-11.0) % Eos % (Auto) (0.0-4.0) % Baso % (Auto) (0.2-1.2) % Add Manual Diff Neutrophils % (Manual) (50-80) % Band Neutrophils % (0-6) % Lymphocytes % (Manual) (25-50) % Monocytes % (Manual) (2-11) % Platelet Estimate POC ABG pH Cancelled POC ABG pCO2 Cancelled POC ABG pO2 Cancelled POC ABG HCO3 Cancelled POC ABG Total CO2 Cancelled POC ABG O2 Sat Cancelled POC ABG Base Excess Cancelled POC VBG pH Cancelled POC VBG pCO2 Cancelled POC VBG pO2 Cancelled POC VBG HCO3 Cancelled POC VBG Total CO2 Cancelled POC VBG Base Excess Cancelled O2 Delivery Device Cancelled POC O2 Flow Rate Cancelled POC FiO2 Cancelled Sodium (136-145) mmol/L Potassium (3.5-5.1) mmol/L Chloride (98-107) mmol/L Carbon Dioxide (21-32) mmol/L Anion Gap (10-20) mmol/L BUN (7-18) mg/dL Creatinine (0.55-1.02) mg/dL Est Cr Clr Drug Dosing Estimated GFR (MDRD) Glucose (74-106) mg/dL POC Glucose (74-106) mg/dL Lactic Acid 2.6 H* (0.4-2.0) mmol/L Calcium (8.5-10.1) mg/dL Corrected Calcium (8.5-10.1) mg/dL Total Bilirubin (0.2-1.0) mg/dL AST (15-37) U/L ALT (14-59) U/L Alkaline Phosphatase (46-116) U/L Creatine Kinase 72 (26-192) U/L Troponin I 0.019 (<=0.056) ng/mL C-Reactive Protein (<=0.9) mg/dL Total Protein (6.4-8.2) g/dL Albumin (3.4-5.0) g/dL Globulin Albumin/Globulin Ratio Urine Color (YELLOW) Urine Appearance (CLEAR) Urine pH (5.0-8.0) Ur Specific [place] Urine Protein (NEGATIVE) mg/dL Urine Glucose (UA) (NEGATIVE) mg/dL Urine Ketones (NEGATIVE) mg/dL Urine Occult Blood (NEGATIVE) Urine Nitrite (NEGATIVE) Urine Bilirubin (NEGATIVE) Urine Urobilinogen (0.2) EU/dL Ur Leukocyte Esterase (NEGATIVE) Urine RBC (NOT SEEN) /HPF Urine WBC (NOT SEEN) /HPF Ur Squamous Epith Cells (NEGATIVE) /HPF Urine Bacteria (NEGATIVE) /HPF Urine Mucus (NEGATIVE) /LPF 11/08/17 11/08/17 11/08/17 Range/Units 14:32 17:09 20:57 WBC (4.0-10.0) x10^3/uL RBC (4.00-5.50) x10^6/uL Hgb (12.0-16.0) g/dL Hct (33.0-47.0) % MCV (78.0-93.0) fL MCH (26.0-32.0) pg MCHC (32.0-36.0) g/dL RDW Coeff of Patricia (10.0-15.0) % Plt Count (130-400) x10^3/uL Neut % (Auto) (50.0-80.0) % Lymph % (Auto) (25.0-50.0) % [place] % (Auto) (2.0-11.0) % Eos % (Auto) (0.0-4.0) % Baso % (Auto) (0.2-1.2) % Add Manual Diff Neutrophils % (Manual) (50-80) % Band Neutrophils % (0-6) % Lymphocytes % (Manual) (25-50) % Monocytes % (Manual) (2-11) % Platelet Estimate POC ABG pH 7.442 POC ABG pCO2 44 POC ABG pO2 79 L POC ABG HCO3 30 H POC ABG Total CO2 31 H POC ABG O2 Sat 96 POC ABG Base Excess 6 H POC VBG pH POC VBG pCO2 POC VBG pO2 POC VBG HCO3 POC VBG Total CO2 POC VBG Base Excess O2 Delivery Device POC O2 Flow Rate POC FiO2 0.28 Sodium (136-145) mmol/L Potassium (3.5-5.1) mmol/L Chloride (98-107) mmol/L Carbon Dioxide (21-32) mmol/L Anion Gap (10-20) mmol/L BUN (7-18) mg/dL Creatinine (0.55-1.02) mg/dL Est Cr Clr Drug Dosing Estimated GFR (MDRD) Glucose (74-106) mg/dL POC Glucose 210 H 326 H (74-106) mg/dL Lactic Acid (0.4-2.0) mmol/L Calcium (8.5-10.1) mg/dL Corrected Calcium (8.5-10.1) mg/dL Total Bilirubin (0.2-1.0) mg/dL AST (15-37) U/L ALT (14-59) U/L Alkaline Phosphatase (46-116) U/L Creatine Kinase (26-192) U/L Troponin I (<=0.056) ng/mL C-Reactive Protein (<=0.9) mg/dL Total Protein (6.4-8.2) g/dL Albumin (3.4-5.0) g/dL Globulin Albumin/Globulin Ratio Urine Color (YELLOW) Urine Appearance (CLEAR) Urine pH (5.0-8.0) Ur Specific [place] Urine Protein (NEGATIVE) mg/dL Urine Glucose (UA) (NEGATIVE) mg/dL Urine Ketones (NEGATIVE) mg/dL Urine Occult Blood (NEGATIVE) Urine Nitrite (NEGATIVE) Urine Bilirubin (NEGATIVE) Urine Urobilinogen (0.2) EU/dL Ur Leukocyte Esterase (NEGATIVE) Urine RBC (NOT SEEN) /HPF Urine WBC (NOT SEEN) /HPF Ur Squamous Epith Cells (NEGATIVE) /HPF Urine Bacteria (NEGATIVE) /HPF Urine Mucus (NEGATIVE) /LPF 11/09/17 11/09/17 11/09/17 Range/Units 05:49 06:38 06:38 WBC 9.4 (4.0-10.0) x10^3/uL RBC 3.86 L (4.00-5.50) x10^6/uL Hgb 11.6 L (12.0-16.0) g/dL Hct 38.3 (33.0-47.0) % MCV 99.2 H (78.0-93.0) fL MCH 30.1 (26.0-32.0) pg MCHC 30.3 L (32.0-36.0) g/dL RDW Coeff of Patricia 13.5 (10.0-15.0) % Plt Count 161 (130-400) x10^3/uL Neut % (Auto) 65.6 (50.0-80.0) % Lymph % (Auto) 22.8 L (25.0-50.0) % [place] % (Auto) 11.0 (2.0-11.0) % Eos % (Auto) 0.4 (0.0-4.0) % Baso % (Auto) 0.2 (0.2-1.2) % Add Manual Diff Neutrophils % (Manual) (50-80) % Band Neutrophils % (0-6) % Lymphocytes % (Manual) (25-50) % Monocytes % (Manual) (2-11) % Platelet Estimate POC ABG pH POC ABG pCO2 POC ABG pO2 POC ABG HCO3 POC ABG Total CO2 POC ABG O2 Sat POC ABG Base Excess POC VBG pH POC VBG pCO2 POC VBG pO2 POC VBG HCO3 POC VBG Total CO2 POC VBG Base Excess O2 Delivery Device POC O2 Flow Rate POC FiO2 Sodium 157 H (136-145) mmol/L Potassium 3.5 (3.5-5.1) mmol/L Chloride 119 H (98-107) mmol/L Carbon Dioxide 33 H (21-32) mmol/L Anion Gap 8.5 L (10-20) mmol/L BUN 24 H (7-18) mg/dL Creatinine 0.9 (0.55-1.02) mg/dL Est Cr Clr Drug Dosing 50.84 Estimated GFR (MDRD) > 60 Glucose 247 H (74-106) mg/dL POC Glucose 197 H (74-106) mg/dL Lactic Acid (0.4-2.0) mmol/L Calcium 8.3 L (8.5-10.1) mg/dL Corrected Calcium 9.74 (8.5-10.1) mg/dL Total Bilirubin 0.4 (0.2-1.0) mg/dL AST 11 L (15-37) U/L ALT 16 (14-59) U/L Alkaline Phosphatase 75 (46-116) U/L Creatine Kinase (26-192) U/L Troponin I (<=0.056) ng/mL C-Reactive Protein 2.6 H (<=0.9) mg/dL Total Protein 6.7 (6.4-8.2) g/dL Albumin 2.2 L (3.4-5.0) g/dL Globulin 4.5 Albumin/Globulin Ratio 0.49 Urine Color (YELLOW) Urine Appearance (CLEAR) Urine pH (5.0-8.0) Ur Specific [place] Urine Protein (NEGATIVE) mg/dL Urine Glucose (UA) (NEGATIVE) mg/dL Urine Ketones (NEGATIVE) mg/dL Urine Occult Blood (NEGATIVE) Urine Nitrite (NEGATIVE) Urine Bilirubin (NEGATIVE) Urine Urobilinogen (0.2) EU/dL Ur Leukocyte Esterase (NEGATIVE) Urine RBC (NOT SEEN) /HPF Urine WBC (NOT SEEN) /HPF Ur Squamous Epith Cells (NEGATIVE) /HPF Urine Bacteria (NEGATIVE) /HPF Urine Mucus (NEGATIVE) /LPF 11/09/17 Range/Units 06:38 WBC (4.0-10.0) x10^3/uL RBC (4.00-5.50) x10^6/uL Hgb (12.0-16.0) g/dL Hct (33.0-47.0) % MCV (78.0-93.0) fL MCH (26.0-32.0) pg MCHC (32.0-36.0) g/dL RDW Coeff of Patricia (10.0-15.0) % Plt Count (130-400) x10^3/uL Neut % (Auto) (50.0-80.0) % Lymph % (Auto) (25.0-50.0) % [place] % (Auto) (2.0-11.0) % Eos % (Auto) (0.0-4.0) % Baso % (Auto) (0.2-1.2) % Add Manual Diff Neutrophils % (Manual) (50-80) % Band Neutrophils % (0-6) % Lymphocytes % (Manual) (25-50) % Monocytes % (Manual) (2-11) % Platelet Estimate POC ABG pH POC ABG pCO2 POC ABG pO2 POC ABG HCO3 POC ABG Total CO2 POC ABG O2 Sat POC ABG Base Excess POC VBG pH POC VBG pCO2 POC VBG pO2 POC VBG HCO3 POC VBG Total CO2 POC VBG Base Excess O2 Delivery Device POC O2 Flow Rate POC FiO2 Sodium (136-145) mmol/L Potassium (3.5-5.1) mmol/L Chloride (98-107) mmol/L Carbon Dioxide (21-32) mmol/L Anion Gap (10-20) mmol/L BUN (7-18) mg/dL Creatinine (0.55-1.02) mg/dL Est Cr Clr Drug Dosing Estimated GFR (MDRD) Glucose (74-106) mg/dL POC Glucose (74-106) mg/dL Lactic Acid 2.8 H* (0.4-2.0) mmol/L Calcium (8.5-10.1) mg/dL Corrected Calcium (8.5-10.1) mg/dL Total Bilirubin (0.2-1.0) mg/dL AST (15-37) U/L ALT (14-59) U/L Alkaline Phosphatase (46-116) U/L Creatine Kinase (26-192) U/L Troponin I (<=0.056) ng/mL C-Reactive Protein (<=0.9) mg/dL Total Protein (6.4-8.2) g/dL Albumin (3.4-5.0) g/dL Globulin Albumin/Globulin Ratio Urine Color (YELLOW) Urine Appearance (CLEAR) Urine pH (5.0-8.0) Ur Specific [place] Urine Protein (NEGATIVE) mg/dL Urine Glucose (UA) (NEGATIVE) mg/dL Urine Ketones (NEGATIVE) mg/dL Urine Occult Blood (NEGATIVE) Urine Nitrite (NEGATIVE) Urine Bilirubin (NEGATIVE) Urine Urobilinogen (0.2) EU/dL Ur Leukocyte Esterase (NEGATIVE) Urine RBC (NOT SEEN) /HPF Urine WBC (NOT SEEN) /HPF Ur Squamous Epith Cells (NEGATIVE) /HPF Urine Bacteria (NEGATIVE) /HPF Urine Mucus (NEGATIVE) /LPF Med Orders - Current: Current Medications Acetaminophen (Tylenol) 650 mg PO Q6H PRN PRN Reason: Pain Alprazolam (Xanax) 1 mg PO QID [facility] Last Admin: 11/09/17 07:53 Dose: 1 mg Bisacodyl (Dulcolax) 10 mg RECTAL DAILY PRN PRN Reason: Constipation Bisacodyl (Dulcolax) 5 mg PO DAILY PRN PRN Reason: Constipation Cefepime HCl (Maxipime) 2 gm IV Q12H [facility] Last Admin: 11/09/17 05:46 Dose: 2 gm Enoxaparin Sodium (Lovenox) 40 mg SUBCUT DAILY [facility] Last Admin: 11/09/17 07:52 Dose: 40 mg Famotidine (Pepcid) 20 mg PO DAILY [facility] Last Admin: 11/09/17 07:53 Dose: 20 mg Glycopyrrolate (Robinul) 1 mg PO Q8H PRN PRN Reason: Other Vancomycin HCl 1,500 mg/ (Sodium Chloride) 250 mls @ 166.667 mls/hr IV BID@0000 ,1200 [facility] Last Admin: 11/09/17 00:29 Dose: 166.667 mls/hr Levofloxacin/Dextrose 250 mg/ (Premix) 50 mls @ 50 mls/hr IV Q24H [facility] Potassium Chloride/Dextrose/Sod Cl (D5 1/2 Ns W/ 10 Meq/L Kcl) 1,000 mls @ 100 mls/hr IV ASDIRECTED [facility] Insulin Detemir (Levemir) 22 unit SUBCUT DAILY [facility] Last Admin: 11/09/17 07:52 Dose: 22 units Morphine Sulfate (Morphine 20 Mg/Ml Soln) 2.5 mg PO Q1H PRN PRN Reason: PAIN OR DYSPNEA Divalproex Sodium [ Depakote] 125 Mg Caps Own Med 0 tab PO BID [facility] Last Admin: 11/09/17 07:52 Dose: 3 tab Ondansetron HCl (Zofran Odt) 4 mg PO Q6H PRN PRN Reason: Nausea Ondansetron HCl (Zofran) 4 mg IV Q6H PRN PRN Reason: Nausea/Vomiting Polyethylene Glycol (Miralax) 17 gm PO DAILY [facility] Last Admin: 11/09/17 07:53 Dose: Not Given Quetiapine Fumarate (Seroquel) 100 mg PO BID [facility] Last Admin: 11/09/17 07:53 Dose: 100 mg Quetiapine Fumarate (Seroquel) 200 mg PO BID [facility] Last Admin: 11/09/17 07:53 Dose: 200 mg Senna/Docusate Sodium (Senna Plus) 2 tab PO BID [facility] Last Admin: 11/09/17 07:54 Dose: Not Given Sertraline HCl (Zoloft) 100 mg PO DAILY [facility] Last Admin: 11/09/17 07:53 Dose: 100 mg Sodium Chloride (Saline Flush) 10 ml FLUSH ASDIRECTED PRN PRN Reason: Keep Vein Open Vancomycin HCl (Pharmacy To Dose - Vancomycin) 1 dose .XX ONETIME ONE Stop: 11/08/17 16:46 Discontinued Medications Cefepime HCl (Maxipime) 2 gm IV Q8H [facility] Lactated Ringer's (Ringers, Lactated) 1,000 mls @ 999 mls/hr IV ONETIME ONE Stop: 11/08/17 14:29 Last Admin: 11/08/17 16:43 Dose: Not Given Sodium Chloride (Normal Saline) 1,000 mls @ 999 mls/hr IV ONETIME ONE Stop: 11/08/17 14:45 Last Admin: 11/08/17 14:00 Dose: 999 mls/hr Levofloxacin/Dextrose 500 mg/ (Premix) 100 mls @ 100 mls/hr IV Q24H [facility] Last Admin: 11/08/17 18:00 Dose: Not Given Lactated Ringer's (Ringers, Lactated) 1,000 mls @ 125 mls/hr IV ASDIRECTED [facility] Last Admin: 11/09/17 05:06 Dose: 125 mls/hr Levofloxacin/Dextrose 500 mg/ (Premix) 100 mls @ 100 mls/hr IV ONETIME ONE Stop: 11/08/17 18:44 Last Admin: 11/08/17 18:04 Dose: 100 mls/hr Non-Formulary Medication (Ranitidine Hcl [Zantac]) 150 mg PO BID [facility] Vancomycin HCl (Pharmacy To Dose - Vancomycin) 1 dose .XX ONETIME ONE Stop: 11/08/17 14:52 Last Admin: 11/08/17 15:26 Dose: Not Given - Problem List Review Problem List Initiated/Reviewed/Updated: Yes - My Orders Last 24 Hours: My Active Orders 11/08/17 16:15 Code Status [Resuscitation Status] Routine 11/08/17 16:18 CULTURE MRSA SURVEY [] Routine 11/08/17 16:55 Acetaminophen [Tylenol] 650 mg PO Q6H PRN Bisacodyl [Dulcolax] 10 mg RECTAL DAILY PRN Glycopyrrolate [Robinul] 1 mg PO Q8H PRN 11/08/17 16:56 Blood Glucose Check, Bedside [RC] 07,11,17,20 11/08/17 17:13 Patient Status [ADT] Routine Oxygen Therapy [RC] PRN Up to Chair [RC] 08,20 VTE/DVT Education [RC] PER UNIT ROUTINE Vital Signs [RC] 06,10,14,18,22,02 Ondansetron [Zofran] 4 mg IV Q6H PRN 11/08/17 17:30 Bisacodyl [Dulcolax] 5 mg PO DAILY PRN Morphine [Morphine 20 MG/ML Soln] 2.5 mg PO Q1H PRN Ondansetron [Zofran ODT] 4 mg PO Q6H PRN 11/08/17 18:00 Cefepime [Maxipime] 2 gm IV Q12H 11/08/17 20:00 ALPRAZolam [Xanax] 1 mg PO QID Divalproex Sodium [Depakote] 0 tab PO BID Docusate Sodium/Sennosides [Senna Plus] 2 tab PO BID QUEtiapine [SEROquel] 100 mg PO BID 11/08/17 Dinner ADA Diabetic [[employer] [employer] Diet] [DIET] Pureed Diet [DIET] Thickened Liquids [DIET] 11/09/17 08:00 Enoxaparin [Lovenox] 40 mg SUBCUT DAILY Famotidine [Pepcid] 20 mg PO DAILY Insulin Detemir [Levemir] 22 unit SUBCUT DAILY Polyethylene Glycol 3350 [MiraLAX] 17 gm PO DAILY QUEtiapine [SEROquel] 200 mg PO BID Sertraline [Zoloft] 100 mg PO DAILY 11/09/17 09:15 D5 1/2 NS w/ 10 mEq/L KCl 1,000 ml IV ASDIRECTED
[2017-11-09] MEDS: Insulin Regular, Human 100 Units/ML 3 ML Vial SUBCUT SCH ×2 (12:07→19:10)
[2017-11-09] MEDS ORDERED: Levofloxacin/Dextrose 5%-Water 250 MG in Premix Bag 1 BAG IV SCH (17:00)
[2017-11-10] MEDS: Cefepime 1 GM Vial IV SCH (05:29)
[2017-11-10 07:18] LABS: CHLORIDE,CL 116 mmol/L (98-107); SODIUM,NA 144 mmol/L (136-145)
[2017-11-10] MEDS: DIVALPROEX SODIUM 125 MG PO SCH (08:10)
[2017-11-10] MEDS: Insulin Regular, Human 100 Units/ML 3 ML Vial SUBCUT SCH ×2 (08:12→11:50)
[2017-11-10] MEDS: Sertraline 100 MG Tab PO SCH (08:15)
[2017-11-10] MEDS: ALPRAZolam 0.5 MG Tab PO SCH ×2 (08:15→11:21)
[2017-11-10] MEDS: QUEtiapine 100 MG Tab PO SCH ×2 (08:16→08:38)
[2017-11-10] MEDS: Famotidine 20 MG Tab PO SCH (08:16)
[2017-11-10] MEDS: Enoxaparin 40 MG/0.4 ML Syringe SUBCUT SCH (08:17)
[2017-11-10] MEDS: Insulin Detemir 100 Units/ML 3 ML Pen SUBCUT SCH (08:18)
[2017-11-10] MEDS: Polyethylene Glycol 3350 Powder 17 GM Packet PO SCH (08:37)
[2017-11-10] MEDS ORDERED: Potassium Chloride 10 MEQ Tab.ER PO ONE (10:03)
[2017-11-10 10:18] VITALS: BP 110/64
[2017-11-10] MEDS ORDERED: Cefuroxime 250 MG Tab PO SCH (10:30)
--- NOTE | 2017-11-10 11:22 | DISCH ---
PRIMARY DISCHARGE DIAGNOSES: 1. Hypernatremia likely due to poor oral intake. 2. Probable healthcare associated pneumonia, improved lactic acid and white count. No further fevers. 3. Diabetes type 2, unspecified complications, but on long-term insulin. 4. Severe Alzheimer disease with dementia, essential hypertension, generalized anxiety disorder, major depressive disorder, generalized osteoarthritis, personality disorder, dysphagia on honey-thickened liquids, GERD without esophagitis, hyperlipidemia, and psychosis unspecified followed by [facility]. REASON FOR ADMISSION: On the date of admission, this 77-year-old who had previously been on hospice, but recently discharged, was lethargic, had 100.2 temperature, low oxygen 87%, was sent over to [facility] for further evaluation. Saturations were over 90 on 2 L. She did admit to me she had a mild cough. There was some question of a left lobe infiltrate. She was started on IV vancomycin and cefepime given her other allergies. She had no further fevers. Her white count improved from 12.2 down to 8.1 on discharge. Her sodium which was high at 157, improved down to 144. Lactic acid which was 2.9 was coming down to 2.7. She did pull out her IV and the morning of discharge she was becoming more alert, did reportedly swing at some staff, but she was cooperative when I talked to her. She was eating and drinking her food. She took her pills okay. Otherwise, she denied any pain. She denied any shortness of breath. She was off oxygen. Discharge vitals include a temperature 98, pulse 56, blood pressure 152/73, prior was 120/64. I suspect the elevated blood pressure was due to some agitation. Respiratory rate 19 and O2 98% on room air. In general, she was in no acute distress. Her heart is regular rate and rhythm. Lung sounds were clear to auscultation bilaterally without crackles or wheezes. Abdomen had positive bowel sounds. It is soft and nontender. Extremities: Warm and dry. No edema. Mental Status: She is alert. She is asking for something to drink, but is not able to answer any orientation questions. Overall, her skin does appear mildly pale. She was on Lovenox during her stay for DVT prophylaxis. Hemoglobin was 12.1 on discharge. Potassium mildly low at 3.2, magnesium pending. She was given 20 mEq of oral potassium. DISCHARGE PLANS AND INSTRUCTIONS: She is being discharged back to [facility] on Ceftin 250 b.i.d. for another 3 days. She will resume the same diet with diabetes, honey consistency and pureed textures. Otherwise, I did speak with the [facility] about comfort measures for her to push fluids at the [facility], try an antibiotic there prior to hospital transfers. They were very receptive to this and will make a note of that and also discuss further with the [facility]. If she continues to have ongoing problems, we will try to re-enroll her in hospice. She is also followed by Psychiatry at the [facility]. No changes in her medications were made. No changes in her insulin were made. Blood sugars were up to a high of 326, probably due to stress on admission, but improved down to 121 on discharge. I will also follow up with her on the next [facility] rounds. Greater than 30 minutes spent on the discharge process. MKA: 11/10/2017 10:16:01 MODL: 11/10/2017 11:15:09 /[id number]
== END 2017-11-10 13:12 | DRG 640 ==
LOC: VM.ED 13:14 → VM.MS 15:36
PROVIDERS: ADMIT Family Medicine; ATTEND Family Medicine
DX: A41.9 Sepsis, unspecified organism (principal); E87.0 Hyperosmolality and hypernatremia; J18.9 Pneumonia, unspecified organism; E78.00 Pure hypercholesterolemia, unspecified; M19.90 Unspecified osteoarthritis, unspecified site; R09.02 Hypoxemia; I10 Essential (primary) hypertension; E11.65 Type 2 diabetes mellitus with hyperglycemia; E11.9 Type 2 diabetes mellitus without complications; F41.9 Anxiety disorder, unspecified; I45.81 Long QT syndrome; F32.9 Major depressive disorder, single episode, unspecified; G30.9 Alzheimer's disease, unspecified; F02.80 Dementia in other diseases classified elsewhere, unspecified severity, without behavioral disturbance, psychotic disturbance, mood disturbance, and anxiety; Z66 Do not resuscitate; K59.09 Other constipation; F41.1 Generalized anxiety disorder; R13.10 Dysphagia, unspecified; K21.9 Gastro-esophageal reflux disease without esophagitis; Z79.84 Long term (current) use of oral hypoglycemic drugs; Z79.82 Long term (current) use of aspirin; Z79.899 Other long term (current) drug therapy; Z87.891 Personal history of nicotine dependence; Z88.0 Allergy status to penicillin; Z87.440 Personal history of urinary (tract) infections
CPT/HCPCS: 36415; 36600; 71045; 80053; 81001; 82550; 82803; 83605; 84484; 85025; 86140; 87040 ×2; 93005; 93010; 96361; 96365; 99285 ×2; J3370; J7030; J7050; 51702; 70450; 80048; 82962; 83735; 94760; A9270-GY; J0692; J1650; J1815; J1815-GY; J1956; J3480; J7120